=== PATIENT | male | born 1940 | race Caucasian/White ===

== ENCOUNTER 2025-02-18 09:57 | Emergency (ER) | payer OTHER, MEDICARE ==
[~2025-02-18] VITALS: Ht 172.7 cm; Wt 97.1 kg
[~2025-02-18 09:57] MED LIST: LISI20TA24 PO; TAMS-55 PO
--- NOTE | 2025-02-18 10:27 | NUR ---
PER PATIENT, HE HAD SELF CATH'D YESTERDAY FROM HAVING HAD A REMAINING CATH KIT FROM A PREVIOUS RETENTION ISSUE. HE HAS NOT BEEN ABLE TO VOID SINCE THEN DESPITE HIS ATTEMPT THIS MORNING.
--- NOTE | 2025-02-18 10:28 | ERN ---
ED Note History of Present Illness Stated Complaint: URINARY RETENTION Chief Complaint: Urinary Retention Time Seen by MD: 10:00 Dictation: PATIENT IS AN 84-YEAR-OLD MALE COMING IN WITH COMPLAINTS OF URINARY URGENCY AND FREQUENCY, VOIDING VERY SMALL AMOUNTS ONSET WAS TWO DAYS AGO. HE STATES IT GOTTEN PROGRESSIVELY WORSE STATES YESTERDAY HE HAD TO SELF-CATHETERIZE FROM SOME CATHETERS THAT WERE LEFTOVER FROM DR. FREEMAN HIS UROLOGISTS HE IS NO LONGER IN THE AREA. HE IS COMING IN THIS MORNING STATES HE JUST VOIDED PRIOR TO ARRIVAL IN THE ER AND IT WAS JUST A FEW DROPS. HE DOES NOT HAVE A UROLOGISTS AT THE PRESENT TIME. NO FEVER NO CHILLS NO NAUSEA VOMITING. PATIENT NOTED TO BE DISTENDED IN TRIAGE Allergies: Coded Allergies: No Known Drug Allergies (Unverified Allergy, Unknown, 12/24/22) Home Meds Reported Medications Lisinopril (Lisinopril) 20 Mg Tablet, 20 MG PO DAILY, TAB 12/24/22 Tamsulosin HCl (Flomax) 0.4 Mg Cap.er.24h, 0.4 MG PO DAILY, CAPSULE. 12/24/22 Past Medical History Past Medical History: High Cholesterol, Heart Disease, Hypertension, Prostatitis Surgical History: Other Surgical History Other: HEART STENT, SHOULDER RN Note Reviewed/Agreed w/PFSH: Yes Review of System Dictation CONSTITUTIONAL: NEGATIVE EXCEPT FOR HPI HEAD/FACE: NEGATIVE EXCEPT FOR HPI EENT: NEGATIVE EXCEPT FOR HPI RESPIRATORY: NEGATIVE EXCEPT FOR HPI GASTROINTESTINAL/ABDOMINAL: NEGATIVE EXCEPT FOR HPI GENITOURINARY: NEGATIVE EXCEPT FOR HPI URINARY URGENCY FREQUENCY VOIDING VERY SMALL AMOUNTS BLADDER DISTENDED MUSCULOSKELETAL: NEGATIVE EXCEPT FOR HPI INTEGUMENTARY: NEGATIVE EXCEPT FOR HPI NEUROLOGICAL/PSYCH: NEGATIVE EXCEPT FOR HPI HEMATOLOGIC/LYMPHATIC: NEGATIVE EXCEPT FOR HPI ALL SYSTEMS NEGATIVE, EXCEPT NOTED ABOVE. 13 POINT REVIEW OF SYSTEMS ASSESSED AND ALL NEGATIVE EXCEPT FOR ABOVE. Initial Vital Sign VS Vital Signs Date Time Temp Pulse Resp B/P (MAP) Pulse Ox O2 Delivery O2 Flow Rate FiO2 02/18/25 10:00 98.2 72 16 139/82 94 Room Air 0 02/18/25 10:03 21 Physical Exam Dictation VITAL SIGNS REVIEWED GENERAL APPEARANCE: ALERT, ORIENTED X 3, DONE TANNER MODERATE ACUTE DISTRESS, WELL DEVELOPED, NOURISHED. HEAD AND FACE: NON-TRAUMATIC. EYES: PERRL, PINK CONJUNCTIVAS, EYELID NO TRAUMA, ANTERIOR CHAMBER WITH ARCUS SENILIS. EARS: PINNAS INTACT AND NO SIGNS OF TRAUMA OR ERYTHEMA EAR CANALS CLEAR AND NO DISCHARGE TM NO ERYTHEMA NOSE: NO DISCHARGE, NO BLEEDING. OROPHARYNX: MOUTH NORMAL, TONGUE PINK, PHARYNX CLEAR,NO ERYTHEMA, TONSILS NO EXUDATES, NO ABSCESSES NOTED, MUCOUS MEMBRANE MOIST NECK: SUPPLE, NON-TENDER, NO THYROMEGALY, NO MASSES, NO JVD, NO BRUITS BREAST:DEFERRED CHEST:NO TENDERNESS, NO CREPITUS, NO PARADOXICAL MOVEMENT, NO RETRACTIONS LUNGS:CLEAR, WELL-VENTILATED, SYMMETRIC, NO RALES, NO WHEEZING, NO RHONCHI, NO STRIDOR, GOOD BREATH SOUNDS BILATERALLY HEART: REGULAR RATE, REGULAR RHYTHM, NO MURMUR, NO GALLOPS VASCULAR: NO PERIPHERAL EDEMA, ABDOMEN: SOFT, POSITIVE BOWEL SOUNDS, NONDISTENDED, NO GUARDING, NONTENDER, NO REBOUND, NO MASSES NO HEPATOMEGALY, NO SPLENOMEGALY, NO STEVENSON'S SIGN, NO HERNIAS. RECTAL: DEFERRED GENITAL BLADDER DISTENDED 3-4 FINGERBREADTHS ABOVE SYMPHYSIS PUBIS NEUROLOGICAL: NORMAL SPEECH, MOTOR FUNCTION INTACT, SENSORY FUNCTION INTACT MUSCULOSKELETAL: NECK NONTENDER, FULL RANGE OF MOTION, BACK NONTENDER, FULL RANGE OF MOTION, EXTREMITIES: NONTENDER, FULL RANGE OF MOTION SKIN: COLOR PINK, DRY, NO TURGOR, NO RASH, NO LACERATIONS, NO ABRASIONS, NO CONTUSIONS. LYMPHATIC: DEFERRED ED Course ED Course Orders Procedure Category Date Status Time Nurse Driven Hess DEVORA 02/18/25 In Process Removal Pro 10:26 Urinalysis Profile LAB 02/18/25 Logged Catherized 10:26 Vital Signs Date Time Temp Pulse Resp B/P (MAP) Pulse Ox O2 Delivery O2 Flow Rate FiO2 02/18/25 10:03 98.2 72 16 139/82 94 Room Air* 0 21 02/18/25 10:00 98.2 72 16 139/82 94 Room Air 0 1100/12 COMORAN HESS CATHETER PLACED TO LEG BAG. 900 ML POSTVOID RESIDUAL RETURNED PATIENT TOLERATED WELL BLADDER NO LONGER PALPABLE BLADDER ATTACHED TO LEG BAG Medical Decision Making MDM MEDICAL DECISION-MAKING BASED ON EMPIRIC TREATMENT FOR ACUTE URINARY TENSION IN A MALE. HESS CATHETER PLACED AND PATIENT WAS DECOMPRESSED PATIENT WILL BE SENT FLOMAX AND CIPRO PROVIDED THE NAME OF Procedure Procedure Dictation: 1050/PROCEDURE EXPLAINED TO PATIENT HE AGREED TO PROCEED FIRST ATTEMPT WAS MADE ASEPTICALLY WITH A 16 COMORAN HESS CATHETER UNSUCCESSFUL WENT TO A 12 COMORAN AND WAS ABLE TO PLACE WITHOUT DIFFICULTY ASEPTICALLY. APPROXIMATELY 900 ML DARK URINE RETURNED BLADDER NO LONGER PALPABLE PATIENT STATES FEELS MARKEDLY IMPROVED. PATIENT WAS ATTACHED TO A LEG BAG WE WILL PROVIDE THE NAME FOR UROLOGY FOLLOW UP DX & DISP Disposition: Discharge Departure Impression: Primary Impression: Urinary retention due to benign prostatic hyperplasia Condition: Stable Scripts Tamsulosin HCl (Flomax) 0.4 Mg Cap.er.24h 0.4 MG PO DAILY for 30 Days, #30 CAPSULE.DR Prov: AURORA KITCHEN NP 02/18/25 Ciprofloxacin HCl (Cipro) 500 Mg Tablet 1 TAB PO BID for 10 Days, #20 TAB 0 Refills Prov: AURORA KITCHEN NP 02/18/25 Additional Instructions: FOLLOW-UP WITH PRIMARY CARE PROVIDER IN 1 TO 2 DAYS. TAKE MEDICATIONS DIRECTED HERE IN THE EMERGENCY ROOM. OKAY TO CONTINUE HOME MEDICATIONS UNLESS OTHERWISE DISCUSSED DURING YOUR VISIT IN THE EMERGENCY ROOM TODAY. RETURN TO YOUR NEAREST EMERGENCY ROOM IF SYMPTOMS WORSEN OR IF THERE IS NO IMPROVEMENT. CALL 911 IF YOU NEED IMMEDIATE ASSISTANCE. TAKE TYLENOL OR MOTRIN [id number] NEEDED AND IF NO CONTRAINDICATIONS ARE PRESENT. INCREASE ORAL HYDRATION. A WOUND CULTURE OR URINE CULTURE WAS ORDERED HERE IN THE EMERGENCY ROOM DEPARTMENT PLEASE FOLLOW-UP WITH PRIMARY CARE PROVIDER AND ADVISE THEM TO GET REPEAT PORTS FROM OUR FACILITY. IF YOU HAD ANY CARMINA WRAP/SPLINTS THAT WERE APPLIED HERE, PLEASE DO NOT REMOVE THEM UNTIL YOU SEE YOUR PRIMARY CARE OR SPECIALTY. CALL UROLOGIST FOR APPOINTMENT TODAY. INCREASE YOUR WATER INTAKE. TAKE FLOMAX AND CIPRO DIRECTED. Referrals: JACIEL DOOLEY MD (PCP) ЕЛЕНА QUACH MD Time of Disposition: 11:02 I have reviewed the case, and I agree with, Diagnosis and Plan AURORA KITCHEN NP Feb 18, 2025 10:28
[2025-02-18] MEDS ORDERED: CIPR-278 PO (11:03)
[2025-02-18] MEDS ORDERED: TAMS-55 PO (11:03)
[2025-02-18 11:09] VITALS: BP 172/86; PULSE 69; RESP 16; TEMP 97.9; O2SAT 95
[2025-02-18 11:10] LABS: APPEARANCE,URINE CLOUDY (CLEAR); GLUCOSE, URINE (UA) NEGATIVE (NEGATIVE); LEUKOCYTE ESTERASE ,URINE NEGATIVE Leu/uL (NEGATIVE); NITRATE,URINE NEGATIVE (NEGATIVE); OCCULT BLOOD,URINE LARGE (NEGATIVE)
[2025-02-18 11:13] LABS: ADD UA MICROSCOPIC YES
== END 2025-02-18 11:14 | disposition home or self-care (01) ==
LOC: EDH 09:57
DX: N40.1 Benign prostatic hyperplasia with lower urinary tract symptoms (principal); R33.9 Retention of urine, unspecified; E78.00 Pure hypercholesterolemia, unspecified; I11.9 Hypertensive heart disease without heart failure; Z79.899 Other long term (current) drug therapy; Z95.5 Presence of coronary angioplasty implant and graft
CPT/HCPCS: 51702; 81001; 87086; 99284